=== PATIENT | female | born 1950 | race Caucasian/White ===

== ENCOUNTER 2023-12-03 10:24 | Emergency (ER) | payer OTHER, MEDICARE ==
[2023-12-03 10:45] VITALS: BP 112/55; PULSE 55; RESP 18; TEMP 98.4; BMI 18.5
[2023-12-03] MEDS ORDERED: IBUPROFEN 400 MG TABLET (FP) PO ONE (11:37)
[2023-12-03] MEDS: IBUPROFEN 400 MG TABLET (FP) PO ONE (11:39)
[2023-12-03 12:38] LABS: HEMATOCRIT 44.4 % (32.4-45.2); HEMOGLOBIN 14.3 G/dL (10.7-15.3); MCH 28.6 pg (25.7-33.7); MCHC 32.1 g/dl (32.0-36.0); MEAN CELL VOLUME 88.9 fl (80-96); MEAN PLT VOLUME 7.5 fl (7.5-11.1); PLATELET COUNT 213.3 10^3/uL (134-434); RBC 4.99 10^6/uL (3.60-5.2); RDW 14.5 % (11.6-15.6); WHITE BLOOD COUNT 6.8 10^3/uL (4.0-10.8)
[2023-12-03 12:43] LABS: PLATELET ESTIMATE ADEQUATE
[2023-12-03 12:51] LABS: ALBUMIN 4.5 g/dl (3.4-5.0); BILIRUBIN,TOTAL 0.7 mg/dl (0.2-1); CALCIUM 9.3 mg/dl (8.5-10.1); CREATININE 1.1 mg/dl (0.6-1.3); TOT PROT 6.6 g/dl (6.4-8.2)
== END 2023-12-03 15:49 | disposition home or self-care (01) ==
LOC: FER 10:24
DX: S32.19XA Other fracture of sacrum, initial encounter for closed fracture (principal); S40.022A Contusion of left upper arm, initial encounter; R55 Syncope and collapse; R51.9 Headache, unspecified; W18.30XA Fall on same level, unspecified, initial encounter
CPT/HCPCS: 36415; 70450-TC; 71045-TC-FY; 72125-TC; 72131-TC; 72192-TC; 80053; 83880; 84484; 85027; 93005; 99285-25